=== PATIENT | female | born 1950 | race Two or more races ===

== ENCOUNTER 2019-04-15 09:19 | Outpatient (CLI) | payer OTHER | END 2019-04-15 09:35 | disposition home or self-care (01) | LOC: OFIC 805 09:19 | DX: H61.23 Impacted cerumen, bilateral (principal); R42 Dizziness and giddiness ==

== ENCOUNTER 2020-12-29 06:26 | Day surgery (SDC) | payer OTHER | END 2020-12-29 14:31 | disposition home or self-care (01) | LOC: CIR.AMB 06:26 | PROVIDERS: ATTEND Urology | DX: N20.0 Calculus of kidney (principal); Z20.822 Contact with and (suspected) exposure to COVID-19 ==

== ENCOUNTER 2025-10-20 09:00 | Emergency (ER) | payer OTHER ==
[~2025-10-20] VITALS: Ht 154.9 cm; Wt 50.8 kg
[2025-10-20 09:03] VITALS: BP 164/87; O2SAT 98
[2025-10-20] MEDS ORDERED: 0.9 % SODIUM CHLORIDE 1,000 ML IV SCH (09:30)
[2025-10-20] MEDS ORDERED: ACETAMINOPHEN 500 MG GEL..CAP PO ONE ×2 (09:30→09:37)
[2025-10-20] MEDS ORDERED: ONDANSETRON HCL 4 MG in 0.9 % SODIUM CHLORIDE 50 ML IV ONE (09:30)
[2025-10-20] MEDS ORDERED: FAMOTIDINE/PF 20 MG in 0.9 % SODIUM CHLORIDE 8 ML IV PUSH ONE (09:30)
[2025-10-20] MEDS ORDERED: ONDANSETRON HCL 2 MG/ML VIAL ONE (09:36)
[2025-10-20] MEDS ORDERED: FAMOTIDINE/PF 20 MG/2 ML VIAL ONE (09:37)
[2025-10-20 10:52] LABS: BASO % 0.3 % (0.1-1.2); EOS # 0.02 (0.04-0.54); EOS % 0.2 % (0.7-7.0); LYMPH # 1.90 (1.18-3.74); LYMPH % 20.2 % (19.3-53.1); MEAN PLATELET VOLUME 10.10 fl (9.4-12.4); MONO # 0.63 (0.24-0.82); MONO % 6.7 % (4.7-12.5); NEUT # 6.79 (1.56-6.13); NEUT % 72.2 % (34.0-71.1); RED CELL DISTRIBUTION WIDTH 14.6 % (11.6-14.4)
[2025-10-20 11:10] LABS: INR 1.06
[2025-10-20 11:16] LABS: ALT/SGPT 19.0 U/L (12-78); AST/SGOT 14.0 U/L (15-37); BILIRUBIN TOTAL 0.6 mg/dL (0.3-1.2); BUN CREA RATIO 9.0 (7.0-25.0); CREATININE SERUM 0.8 mg/dL (0.55-1.02); GFR 69.55; GLOBULINA 3.7 G/DL (2.4-3.5); GLUCOSE FASTING 99.0 mg/dL (65-100); OSMOLALITY SERUM 277.0 MOSM/KG (275-295)
[2025-10-20 11:23] LABS: URINE APPEARANCE Clear; URINE BILIRRUBIN Negative (NEGATIVE); URINE BLOOD Large; URINE COLOR Yellow; URINE GLUCOSE Negative (NEGATIVE); URINE KETONE Negative (NEGATIVE); URINE LEUKOCYTE Trace; URINE NITRATE Negative; URINE UROBILINOGEN 0.2 E.U./dl
[2025-10-20 11:26] LABS: URINE BACTERIA 42.3 uL (0.0-1933); URINE EPITHELIAL CELLS 7.0 uL (0.0-38.8); URINE RBC 151.0 uL (0.0-20.8); URINE WBC 16.2 uL (0.0-23.2)
[2025-10-20 11:29] LABS: URINE CAST 0.42 uL (0.0-1.40); URINE PROTEIN 100 (NEGATIVE)
[2025-10-20] MEDS ORDERED: KETOROLAC TROMETHAMINE 30 MG VIAL IU ONE (12:00)
[2025-10-20] MEDS ORDERED: DEXAMETHASONE SODIUM PHOSPHATE 4 MG/ML VIAL IV ONE (12:00)
[2025-10-20] MEDS ORDERED: MECLIZINE HCL 25 MG TABLET PO ONE (12:00)
[2025-10-20] MEDS ORDERED: DOLOGESIC 500-1 EACH PO (12:31)
[2025-10-20] MEDS ORDERED: DRAMAMINE25 M2 PO (12:31)
== END 2025-10-20 12:54 | disposition home or self-care (01) ==
LOC: ER 09:01
PROVIDERS: General Practice
DX: R51.9 Headache, unspecified (principal); Z91.041 Radiographic dye allergy status; Z88.8 Allergy status to other drugs, medicaments and biological substances; R42 Dizziness and giddiness
CPT/HCPCS: 36415; 70450; 71045; 93005; 96365; 96366; 99284; J2405; J3490; J7030